=== PATIENT | female | born 1985 | race Caucasian/White ===

== ENCOUNTER 2025-03-07 17:34 | Inpatient (IN) ==
--- NOTE | 2025-03-07 17:51 | Emergency Department Note ---
Impression & Plan Back pain, Neck and shoulder pain, Abnormal EKG, Elevated troponin I level, Cervical spine arthritis ED Provider Note NAME: DEAN DELANEY AGE: 39 SEX: F : 1985 ARRIVES VIA: Walk-In INFORMANT: Patient, ED PROVIDER(S): Jean Jones DO CHIEF COMPLAINT: Numbness HPI: The patient is a 39-year-old female who presented to the emergency department for an evaluation. The patient states that she has been having intermittent episodes of numbness and pain in visual problems over the course the last year. She states that sometimes it is in her legs sometimes it is in her arms. She states that today she noticed numbness in the right arm. She was concerned because it was radiating up the arm and she was concerned that something else could be going on. The patient denies having any fever. She has had no recent traveling. She is not been seen by her family doctor for the symptoms. The patient was asking specifically about the possibility of MS. ROS: See above HPI for pertinent positives & negatives. A total of 10 systems reviewed and were otherwise negative. PAST MEDICAL HISTORY: See Below PAST SURGICAL HISTORY: See Below FAMILY HISTORY: See Below SOCIAL HISTORY: See Below HOME MEDICATIONS: See Below ALLERGIES: See Below VITALS: See Below PHYSICAL EXAMINATION: GENERAL: Patient is awake alert in no acute distress patient is resting comfortably and showing no signs of anxiety EYES: The conjunctivae are clear. The pupils are round and reactive. EARS, NOSE, MOUTH AND THROAT: The nose is without any evidence of any deformity. NECK: The neck is nontender and supple. RESPIRATORY: Normal respiratory effort is noted there is no evidence of wheezing rhonchi or rales CARDIOVASCULAR: Regular rate and rhythm noted there no murmurs rubs or gallops normal S1 normal S2. GASTROINTESTINAL: The abdomen is soft. Abdomen is nontender. MUSCULOSKELETAL/EXTREMITIES: There is no evidence of gross deformity full range of motion is noted in the hips and shoulders. SKIN: There is no obvious evidence of any rash. There are no petechiae, pallor or cyanosis noted. NEUROLOGIC: Patient is awake alert and oriented x3 strength is symmetric patellar reflexes are 2+ bilaterally MEDICAL DECISION MAKING: The patient is a 39-year-old female who presented to the emergency department for an evaluation of joint pain arm numbness back pain and neck pain. The patient has a history of diabetes. Because of her history and comorbidities further laboratory and radiographic studies were obtained. I was concerned this could represent some sort of anginal equivalent. The patient's EKG did show some changes compared to previous which could be related to a strain pattern. Troponin was slightly elevated. I discussed the patient's laboratory and radiographic studies with her. CT of the cervical spine did show some arthritis which could explain some of her symptoms as well as cervical radiculopathy. Given the patient's findings I do not feel she would be a good candidate for outpatient management. For this reason I discussed her condition with the on- call [facility] hospitalist. Triage Nursing notes reviewed. Prior medical records reviewed Vital Signs: reviewed and remarkable for elevated blood pressure. Differential diagnosis: Infection, dehydration, metabolic abnormality, hypo/hyperglycemia, electrolyte disturbance, anemia, hypoxia, cardiac sources, intracerebral event, toxicologic, neurologic, as well as other pathologies. ER treatment provided: See below Diagnostics interpreted by me: ECG: EKG was obtained in the emergency department. My interpretation is normal sinus rhythm at 72 bpm. There is no ectopy. Nonspecific ST abnormalities were noted in the inferior and low lateral leads. This was compared to a tracing from April 07, 2014. The ST abnormalities are new compared to the previous tracing. Cardiac Monitoring: An order was placed for continuous cardiac monitoring. The monitor shows a rate of 68 bpm with sinus rhythm. Laboratory studies: As stated above and show below. Imaging studies: See below. Radiographic imaging was reviewed by myself Consultation(s): I discussed this case with Dr. Mcconnell who is on-call for the [facility] group. Past Med/Surg History Problem List (Updated 03/07/25 @ 19:56 by Jean Jones DO) Cervical spine arthritis (Acute) Elevated troponin I level (Acute) Abnormal EKG (Acute) Neck and shoulder pain (Acute) Back pain (Acute) Hypothyroidism (Chronic) Hypokalemia (Chronic) Kidney stones (Chronic) Pancreatitis (Chronic) Depression (Chronic) Acute pancreatitis (Acute) Acute pancreatitis (Acute) Social History Smoking Status: Unknown if ever smoked Preferred Language: Maori Feels Safe at Home: Yes Allergies Allergies Allergy/AdvReac Type Severity Reaction Status Date / Time No Known Allergies Allergy Unverified 04/06/14 15:29 Home Meds Home Medications Medication Instructions Recorded Confirmed 5-HYDROXYTRYPTOPHAN (5-HTP) 2 cap PO DAILY ##0 04/06/14 Amlodipine Besylate 1 tab PO DAILY ##0 04/06/14 Clonazepam (Klonopin) 2 mg PO BID Anxiety/Agitation #0 04/06/14 tabs Levothyroxine Sodium (Synthroid) 1 tab PO DAILY ##0 04/06/14 Omeprazole (Prilosec) 40 mg PO DAILY #0 caps 04/06/14 POTASSIUM CHLORIDE (KLOR-CON) 40 meq PO DAILY #0 tabs 04/06/14 Simvastatin 1 tab PO DAILY ##0 04/06/14 Previous Rx's Medication Instructions Recorded Loratadine (Claritin) 10 mg PO DAILY 30 days #0 tabs 04/08/14 Nicotine 14 mg transdermal QAM 45 days ##0 04/08/14 Results & Data (ED) Vital Signs Vital Signs - 24 hr 03/07/25 17:40 03/07/25 18:22 Temperature 36.7 C Temperature Source Temporal Artery Scan Pulse Rate 73 68 Respiratory Rate 18 17 Respiratory Effort / Characteristics Non-Labored Spontaneous Respiratory Depth Normal Blood Pressure 147/97 H Blood Pressure Mean 113 Pulse Oximetry 97 94 Oxygen Delivery Method Room Air Room Air Sepsis Recent Fever Within 48 Hours No Sepsis New/Unexplained Change in Mental Status N/A Sepsis Action Taken by Nursing No Action Required Home Medications Current Medication List: was personally reviewed by me Laboratory Data Attestation: I reviewed the patient's lab results. 03/07/25 18:12 03/07/25 18:12 Lab Results 03/07/25 Range/Units 18:12 WBC 10.46 (4.8-10.8) K/ul RBC 4.63 (4.20-5.40) M/uL Hgb 14.1 (12.0-16.0) g/dl Hct 40.7 (37.0-47.0) % MCV 87.9 (80.0-100.0) fL MCH 30.5 (25.0-34.0) pg MCHC 34.6 (32.0-36.0) g/dL RDW Std Deviation 41.6 (36.4-46.3) fL RDW Coeff of Ginny 13.1 (11.5-14.5) % Plt Count 316 (130-400) K/uL MPV 9.2 L (9.4-12.4) fL Immature Gran % (Auto) 1.3 % Neut % (Auto) 52.0 % Lymph % (Auto) 36.2 % Storey % (Auto) 5.1 % Eos % (Auto) 4.6 % Baso % (Auto) 0.8 % Neut # (Auto) 5.44 (1.40-6.50) K/uL Lymph # (Auto) 3.79 H (1.20-3.40) K/uL Storey # (Auto) 0.53 (0.11-0.59) K/uL Eos # (Auto) 0.48 (0.00-0.50) K/uL Baso # (Auto) 0.08 (0.00-0.20) K/uL Immature Gran # (Auto) 0.14 (0.01-0.20) K/uL Sodium 134 L (136-145) mmol/L Potassium 3.9 (3.5-5.1) mmol/L Chloride 103 (98-107) mmol/L Carbon Dioxide 24 (21-32) mmol/L Anion Gap 7 (3-11) BUN 30 H (6-23) mg/dl Creatinine 1.10 (0.6-1.2) mg/dl Est Cr Clr Drug Dosing 71.3 ml/min eGFR 65.14 BUN/Creatinine Ratio 27.3 H (10-20) Glucose 101 H (70-99(Fasting)) mg/dl Calcium 9.7 (8.6-10.3) mg/dl Magnesium 1.8 (1.7-2.4) mg/dl Total Bilirubin 0.6 (0.2-1.0) mg/dl AST 38 (13-39) U/L ALT 41 (7-52) U/L Alkaline Phosphatase 34 (34-104) U/L Troponin I High Sens 17.1 H (0-14) pg/ml Total Protein 7.6 (6.0-8.3) gm/dl Albumin 4.4 (3.4-5.0) gm/dl Globulin 3.2 (2.5-4.0) gm/dl Albumin/Globulin Ratio 1.4 (0.9-2) TSH 2.342 (0.300-4.500) uIu/ml HCG, Qual Negative (Negative) Administered Medications Discontinued Medications Aspirin (Aspirin Chew 324 Mg) 324 mg PO NOW STA Stop: 03/07/25 19:01 Last Admin: 03/07/25 19: Dose: 324 mg Documented By: JANE Dexamethasone Sodium Phosphate (DexamethasonePf 10 Mg/Ml Vial) 10 mg IV NOW ONE Stop: 03/07/25 19:01 Last Admin: 03/07/25 19: Dose: 10 mg Documented By: JANE Imaging Data Attestation: I personally reviewed and interpreted this imaging study as follows: My Impression: CT of the brain was obtained in the emergency department. My interpretation is no intracranial hemorrhage or mass effect, final report below. 1 view chest x-ray was obtained in the emergency department. My interpretation is no free air or definite infiltrate, final report below. Radiologist's Impression: Cervical Spine CT 03/07/25 18:01 Clinical history: Numbness Technique: Axial computed tomography images were obtained of the cervical spine without intravenous contrast. Sagittal and coronal reconstructions were obtained Findings: No fracture is identified. No listhesis is seen. No focal osseous lesion is evident. The atlantoaxial articulation appears unremarkable. At C2-3, no disc herniation is identified. There is no spinal stenosis. The neural foramen are patent At C3-4, there is a mild disc bulge. There is no spinal stenosis. The neural foramen are patent At C4-5, there is a mild disc bulge. There is no spinal stenosis. The neural foramen are patent At C5-6, there is spinal stenosis due to a disc bulge and a right paracentral disc protrusion. The neural foramen are patent At C6-7, there is spinal stenosis due to a disc bulge and a central disc protrusion. There is bilateral neural foramen narrowing that may affect the exiting C7 nerve roots At C7-T1, there is a mild disc bulge without spinal stenosis. There is mild left neural foramen narrowing The lung apices appear clear. The visualized soft tissues of the neck appear unremarkable. No foreign body is seen Impression: 1. No definite cervical spine fracture 2. Spinal stenosis at C5-6 and C6-7 3. Bilateral neural foramen narrowing at C6-7 that may affect the exiting C7 nerve roots ACT 112: Positive. There are findings on this exam that require communication between the performing entity and the patient following Patient Test Result Information Act ([place] ACT 112) guidelines. Electronically signed by Landry Wayne 03-07-2025 6:53 PM Chest X-Ray 03/07/25 18:01 Clinical History: Weakness Technique: A frontal view of the chest was obtained Findings: There are no confluent pulmonary infiltrates. The heart size is within normal limits. No pleural effusion or pneumothorax is seen. There is no definite pulmonary nodule. No fracture is noted. No foreign body is seen Impression: No active disease Electronically signed by Landry Wayne 03-07-2025 7:[address] 03/07/25 18:01 Clinical History: Numbness Technique: Axial computed tomography images were obtained of the brain from the vertex to the skull base without intravenous contrast. Findings: There is no sign of intracranial hemorrhage. There is normal ovalle-white matter differentiation with no sign of acute or old infarction. No midline shift or other form of herniation is identified. There is no hydrocephalus. No obvious mass lesion is seen on this noncontrast examination. The visualized portions of the orbits and paranasal sinuses appear unremarkable. The mastoid air cells appear clear Impression: Unremarkable noncontrast CT of the brain Electronically signed by Landry Wayne 03-07-2025 6:50 PM Discharge Plan Visit Data Chief Complaint: Leg Injury/Pain Stated Complaint: NUMBNESS PAIN IN LEGS IN RT ARM AND HAND ED Provider: Jean Jones Discharge Problem: Back pain, Neck and shoulder pain, Abnormal EKG, Elevated troponin I level, Cervical spine arthritis Patient Disposition: Being Evaluated by Hospitalist Condition: Fair Forms Stand Alone Forms: [facility] Prescriptions Prescriptions: No Action 5-HYDROXYTRYPTOPHAN (5-HTP) 100 MG capsule 2 cap PO DAILY Qty: 0 Amlodipine Besylate 10 MG tablet 1 tab PO DAILY Qty: 0 Levothyroxine Sodium (Synthroid) 25 MCG tablet 1 tab PO DAILY Qty: 0 Omeprazole (Prilosec) 40 MG CONTR REL CAP 40 mg PO DAILY Qty: 0 POTASSIUM CHLORIDE (KLOR-CON) 20 MEQ [id number] 40 meq PO DAILY Qty: 0 Simvastatin 40 MG tablet 1 tab PO DAILY Qty: 0 Clonazepam (Klonopin) 2 MG tablet 2 mg PO BID Qty: 0 Loratadine (Claritin) 10 MG tablet 10 mg PO DAILY 30 Days Qty: 0 0RF Nicotine 1 PATCH TRANSDERM SYS 14 mg Transdermal QAM 45 Days Qty: 0 0RF Referrals Referrals: Misael Galaviz, [Outside Practitioners] -
[2025-03-07 18:25] LABS: Hematocrit (blood only) 40.7 % (37.0-47.0); Hemoglobin 14.1 g/dl (12.0-16.0); Immature Granulocytes # (auto) 0.14 K/uL (0.01-0.20); Immature Granulocytes % (auto) 1.3 %; Mean Corpuscular Hemoglobin 30.5 pg (25.0-34.0); Mean Corpuscular Volume 87.9 fL (80.0-100.0); Platelet Count 316 K/uL (130-400); RDW Standard Deviation 41.6 fL (36.4-46.3); Red Blood Count 4.63 M/uL (4.20-5.40); White Blood Count 10.46 K/ul (4.8-10.8)
[2025-03-07 18:41] LABS: Pregnancy Test, Serum Negative (Negative)
[2025-03-07 18:43] LABS: Alanine Aminotransferase 41.0 U/L (7-52); Albumin Globulin Ratio 1.4 (0.9-2); Alkaline Phosphatase 34.0 U/L (34-104); Anion Gap 7.0 (3-11); Bilirubin,Total 0.6 mg/dl (0.2-1.0); Blood Urea Nitrogen 30.0 mg/dl (6-23); Calcium 9.7 mg/dl (8.6-10.3); Carbon Dioxide 24.0 mmol/L (21-32); Chloride 103.0 mmol/L (98-107); Creatinine Clr Calc Pharmacy 71.3 ml/min; Globulin 3.2 gm/dl (2.5-4.0); Glucose 101.0 mg/dl (70-99(Fasting)); Magnesium 1.8 mg/dl (1.7-2.4); Potassium 3.9 mmol/L (3.5-5.1); Sodium 134.0 mmol/L (136-145); Total Protein 7.6 gm/dl (6.0-8.3)
--- NOTE | 2025-03-07 18:51 | CT Scan Report ---
Clinical History: Numbness Technique: Axial computed tomography images were obtained of the brain from the vertex to the skull base without intravenous contrast. Findings: There is no sign of intracranial hemorrhage. There is normal ovalle-white matter differentiation with no sign of acute or old infarction. No midline shift or other form of herniation is identified. There is no hydrocephalus. No obvious mass lesion is seen on this noncontrast examination. The visualized portions of the orbits and paranasal sinuses appear unremarkable. The mastoid air cells appear clear Impression: Unremarkable noncontrast CT of the brain Electronically signed by Landry Wayne 03-07-2025 6:50 PM
--- NOTE | 2025-03-07 18:53 | CT Scan Report ---
Clinical history: Numbness Technique: Axial computed tomography images were obtained of the cervical spine without intravenous contrast. Sagittal and coronal reconstructions were obtained Findings: No fracture is identified. No listhesis is seen. No focal osseous lesion is evident. The atlantoaxial articulation appears unremarkable. At C2-3, no disc herniation is identified. There is no spinal stenosis. The neural foramen are patent At C3-4, there is a mild disc bulge. There is no spinal stenosis. The neural foramen are patent At C4-5, there is a mild disc bulge. There is no spinal stenosis. The neural foramen are patent At C5-6, there is spinal stenosis due to a disc bulge and a right paracentral disc protrusion. The neural foramen are patent At C6-7, there is spinal stenosis due to a disc bulge and a central disc protrusion. There is bilateral neural foramen narrowing that may affect the exiting C7 nerve roots At C7-T1, there is a mild disc bulge without spinal stenosis. There is mild left neural foramen narrowing The lung apices appear clear. The visualized soft tissues of the neck appear unremarkable. No foreign body is seen Impression: 1. No definite cervical spine fracture 2. Spinal stenosis at C5-6 and C6-7 3. Bilateral neural foramen narrowing at C6-7 that may affect the exiting C7 nerve roots ACT 112: Positive. There are findings on this exam that require communication between the performing entity and the patient following Patient Test Result Information Act ([place] ACT 112) guidelines. Electronically signed by Landry Wayne 03-07-2025 6:53 PM
[2025-03-07 18:58] LABS: Thyroid Stimulating Hormone 2.342 uIu/ml (0.300-4.500)
[2025-03-07] MEDS: dexAMETHasone**PF** 10 MG/ML VIAL IV ONE (19:25)
[2025-03-07] MEDS: ASPIRIN CHEW 324 MG PO STA (19:25)
--- NOTE | 2025-03-07 19:32 | XRay Report ---
Clinical History: Weakness Technique: A frontal view of the chest was obtained Findings: There are no confluent pulmonary infiltrates. The heart size is within normal limits. No pleural effusion or pneumothorax is seen. There is no definite pulmonary nodule. No fracture is noted. No foreign body is seen Impression: No active disease Electronically signed by Landry Wayne 03-07-2025 7:32 PM
[2025-03-07] MEDS: MoRPHine SULFATE 4 MG/ML 1 ML CARP\\VIAL IV STA (20:46)
[2025-03-07] MEDS: ONDANSETRON INJ 2 MG/ML 2 ML VIAL IV STA (20:46)
--- NOTE | 2025-03-07 20:58 | History & Physical Report ---
Date of Service March 07, 2025 Assessment & Plan (1) Numbness and tingling: (2) Radiculopathy: (3) Elevated troponin: (4) Type 2 diabetes mellitus: Plan 39-year-old female PMHx depression, hypothyroidism, and cervical spine arthritis presenting for numbness and tingling in her bilateral arms. Per ED evaluation reveals slightly decreased sodium, slightly elevated troponin, and EKG with some changes. Imaging reveals no findings on CXR or head CT, however cervical spine CT does reveal narrowing at C6-7 with spinal stenosis. She will be admitted for evaluation of elevated troponin as well as persistent upper extremity symptoms. #Numbness and tingling/Cervical radiculopathy Presenting with numbness/tingling of BUE, ongoing for years but worsening the day of arrival; Known cervical arthritis per chart. On topiramate. Received pain management and steroids in ED. Pt has a wide variety of symptoms mentioned. Given her history of cervical arthritis, numbness/tingling, sensation abnormalities (itching) and overall picture, I do think medical charge entry specialist rheumatology labs would be reasonable at this time. She was seen by rheum in the past but was not satisfied with the evaluation. Also, with symptomatic cervical findings on imaging, ortho will be consulted for any assistance in case. - CBC without leukocytosis, stable H/H; CMP Na 134, BUN 30, ratio 27.3, glucose 101; TSH 2.342 - CBC am - LFTs WNL - Pending ESR, CRP, IWONA, rheum factor, vitamin B12, folate, A1c - CXR WNL - Head CT WNL - C spine CT no fracture, spinal stenosis of C5-6 and C6-7, bilateral neuroforaminal narrowing at C6-7 that may be affecting C7 nerve root - Heat prn back, lidocaine patch prn - Acetaminophen prn fever/pain, morphine prn severe pain - Ortho consulted - appreciate input + recs -- further imaging as determined by ortho #Elevated troponin Some chest tightness earlier in the day, also in setting of asthma. Will continue to monitor. Low suspicion for ACS at time of admission. - Troponin 17.1, pending repeat - EKG NSR with nonspecific T wave abnormality but no clear ischemic changes - Likely 2/2 demand - EKG prn CP #T2DM H/o DMT2; At home regimen of Jardiance, metformin, insulin glargine 38U, insulin lispro. - A1c pending - Hold hold regimen - May use Dexcom, 1 check daily - SSI with target BSG range 110-150mg/dL, CF 25, carb ratio 10 - Lantus 15U BID - Adjust regimen as needed #Asthma- CXR stable; No O2; Dupixent, Trelegy - continue #HTN- Amlodipine - continue #Dyslipidemia- Fenofibrate, fish oil, rosuvastatin - continue #Psych- BuSpar, escitalopram, hydroxyzine prn - continue #Hypothyroidism- Levothyroxine - continue #GERD- Pantoprazole - continue #MERLIN- CPAP HS - continue Dispo: Admit, med/tele VTE Prophylaxis: SCDs This document was dictated utilizing [employer]. Please excuse any grammatical errors that may be secondary to use of this software. Admission and Anticipated Discharge Date Admission Date: 03/07/2025 History of Present Illness Chief Complaint: Numbness/tingling Primary Care Provider: YVETTE Velázquez 39-year-old female PMHx HTN, T2DM, anxiety/depression, asthma, GERD, hypothyroidism, and cervical spine arthritis presenting for numbness and tingling in her bilateral arms. Patient has an extensive past medical history. In terms of her concerns on the day of arrival, she states that she was at [facility] earlier in the day and she started to have R arm numbness that was localized from the elbow to the hand, and she felt that her ep technologist had decreased. This was causing her some discomfort and pain. She has not had that in the past, likely because it had occurred on one side she was concerned. She additionally states that she might have had some chest pressure and difficulty breathing at some point, probably 2 hours prior to being seen but possible. She states when she got to her car her forehead was cold but she felt sweaty, also mentioning that it was a very hot point in the day that medicine because of the outside temperature. Denies palpitations, abdominal pain, N/V/D/C, weakness, lightheadedness, syncope, or falls. No recent trauma to her back, however she did attempt a different lifting technique a few days ago which she felt may have pulled her back slightly, but again no falls or trauma. Patient starts by mentioning she has a history of chronic pancreatitis which started in her early 20s. It was thought to be secondary to hypertriglyceridemia, and her most recent episode of pancreatitis was approximately 4 years ago. She does take 4 fish capsules nightly which has seemed to prevent this from as she is on medications. She denies abdominal pain, N/V/D/C. Since 26 years old, she has had bilateral leg pain and numbness. She states that this was thought to be secondary to Tricor which was discontinued at the time, however she continued to have symptoms. The symptoms go down her left leg and into her buttock/left side of the spine mostly. This has been ongoing for 3 to 4 months with associated N/T. She is taken Tylenol arthritis and attempt to alleviate this which has for the most part until approximately 2 weeks ago whenever the symptoms moved to her RLE. She states that whenever she touches her back she cannot always feel it. She has difficulties having bowel movements as it causes her back and posterior leg pain when straining to have a BM. She states that she cannot empty her bladder completely as she was told a few years ago during a Pap smear that her bladder was descending and she may never be able to feel herself empty completely. Patient does have a history of carpal tunnel since 2016 when she was with her son and her bilateral upper extremities. For the past 3 years she says her whole body has just always been numb. She occasionally will have worsening pain in her leg when her neck bothers her, and she admits to sleeping on her stomach often but she is not sure if sleep position, at times, irritates this. Patient also admits to having "fluid around my heart" when her body is under stress. Patient was diagnosed with diabetes in May 2024 and started on insulin. Also started on vitamin D and magnesium for low levels. Reports chronic yeast infections. States that when her numbness resolves at times, the sensation changes to it itching "on fire" sensation where she will scratch the areas are previously numb to the point that she sometimes causes scabbing or welts to occur. At present, she admits to occasional chest tightness, but no pain/palpitations. No SOB. Patient was reportedly seen by rheumatology 3 years back but felt as though she was "brushed off" because she was 30 minutes late to her appointment after her phone and she was unable to find the location of the building. States the only thing that was positive at that time was possible gluten intolerance, however after further testing this came back as negative. She has been dealing with an ongoing array of symptoms for many years, stating that she often will minimize her symptoms because she does not want to symptomatic. 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 ED evaluation reveals CBC without leukocytosis and with stable H&H; CMP sodium 134, BUN 30, ratio 327.3, glucose 101; troponin 17.1, pending repeat; TSH 2.342; CXR no active disease; head CT unremarkable; cervical spine CT no definite fracture, spinal stenosis of C5-6 and C6-7, bilateral neural foramen narrowing at C6-7 that may affect the existing C7 nerve roots; EKG NSR with nonspecific T wave abnormality at 72 bpm.; Provided with Zofran 4 mg IV, morphine 4 mg IV, dexamethasone 10 mg IV, and aspirin 324 mg p.o. in ED. Please see Dr. Mcconnell's attestation for adjustments/additions to treatment plan. Allergies Allergy/AdvReac Type Severity Reaction Status Date / Time ciprofloxacin [From Cipro] Allergy Unknown Verified 03/07/25 22:01 prednisone AdvReac Mild Verified 03/07/25 22:01 NSAIDS (Non-Steroidal AdvReac Unknown Verified 03/07/25 22:01 Anti-Inflamma Home Medications Medication Instructions Recorded Confirmed Type buspirone 15 mg tablet 15 mg PO TID 03/07/25 03/07/25 History dupilumab 300 mg/2 mL subcutaneous 300 mg subcut 2XWK 03/07/25 03/07/25 History syringe (Dupixent) empagliflozin 10 mg tablet 10 mg DAILY 03/07/25 03/07/25 History (Jardiance) ergocalciferol (vitamin D2) 1,250 1,250 mcg PO WK 03/07/25 03/07/25 History mcg (50,000 unit) capsule (Vitamin D2) escitalopram oxalate 20 mg tablet 20 mg PO DAILY 03/07/25 03/07/25 History (Lexapro) fenofibrate micronized 134 mg 134 mg PO DAILY 03/07/25 03/07/25 History capsule fluticasone fur. 100 mcg-umeclid 1 inh inhalation DAILY 03/07/25 03/07/25 History 62.5 mcg-vilant 25 mcg inhalat.powder (Trelegy Ellipta) hydroxyzine HCl 10 mg tablet 10 mg PO TID PRN Anxiety/Agitation 03/07/25 03/07/25 History insulin glargine 100 unit/mL (3 38 unit subcut HS 03/07/25 03/07/25 History mL) subcutaneous pen (Lantus Solostar U-100 Insulin) insulin lispro 100 unit/mL 5 unit subcut TID 03/07/25 03/07/25 History subcutaneous pen levothyroxine 112 mcg tablet 112 mcg PO QAM 03/07/25 03/07/25 History magnesium oxide 400 mg (241.3 mg 400 mg PO DAILY 03/07/25 03/07/25 History magnesium) tablet metformin 1,000 mg tablet 1,000 mg PO BID 03/07/25 03/07/25 History omega-3 acid ethyl esters 1 gram 1 g PO QID 03/07/25 03/07/25 History capsule pantoprazole 20 mg tablet,delayed 20 mg PO DAILY 03/07/25 03/07/25 History release rosuvastatin 10 mg tablet 10 mg PO DAILY 03/07/25 03/07/25 History topiramate 25 mg tablet 25 mg PO BID 03/07/25 03/07/25 History Past Med/Surg History Problem List Type 2 diabetes mellitus Elevated troponin Radiculopathy Numbness and tingling Cervical spine arthritis (Acute) Elevated troponin I level (Acute) Abnormal EKG (Acute) Neck and shoulder pain (Acute) Back pain (Acute) Hypothyroidism (Chronic) Hypokalemia (Chronic) Kidney stones (Chronic) Pancreatitis (Chronic) Depression (Chronic) Acute pancreatitis (Acute) Acute pancreatitis (Acute) Social History Smoking Status: Former smoker Tobacco Type: Cigarettes Second Hand Exposure: No; Do You Dip or Chew Tobacco: No; Hx Alcohol Use: No Hx Substance Use: No Preferred Language: Spanish Communication Ability: Effective Ob Scrub Tech Required: No Beliefs That Will Affect Care: None Current Living Situation: Family Other Information That Helps Us Care for You: No Feels Safe at Home: Yes Safety Concerns: Feels Safe At This Time Assistive Devices: CPAP Review of Systems Review of Systems: All systems reviewed & are unremarkable except as noted in Subjective Physical Exam Physical Exam: General: No acute distress Skin: Warm and dry Head: Normocephalic, atraumatic Eyes: PERRL, conjunctivae clear, sclera non-icteric ENT: External ear and ear canal without swelling; nose atraumatic; good dentition, tongue normal appearance, pharynx normal Neck: Supple, no LAD Cardio: RRR, no M/G/R, S1 and S2 normal Resp: No respiratory distress, Lungs CTA in all lobes bilaterally, no wheezes, rales, or rhonchi Abdomen: Soft, symmetric, nontender; No masses or hepatosplenomegaly; Bowel sounds normoactive MSK: No deformities; pulses palpable and equal; no edema. Neuro: II- PERRL, no VF deficits III, IV, - EOMs intact, no deviation V- Normal sensation in all locations VII- No asymmetry, no nasolabial fold flattening VIII- Normal hearing to speech IX, X- Normal palatal elevation, no ulnar deviation XI- 5/5 head turn + shoulder shrug bilaterally XII- Midline tongue protrusion Motor: 5/5 strength throughout BUE/BLE Reflexes: WNL throughout, no clonus Sensory: No hemineglect; Decreased sensation to RUE outer forearm compared to L, normal sensation BLE/face/shoulders; "numbness" to back around T7-T8 (no skin changes) Coordination: Normal [id number], no tremor Gait: Unable to asses; no complaints Psych: Appropriate mood and affect, slightly anxious at times; good judgement and insight. Results & Data Results & Data Vital Signs (Past 12 Hours) Vital Signs Temp Pulse Resp BP Pulse Ox O2 Del Method 03/07/25 18:22 68 17 94 Room Air 03/07/25 17:40 36.7 C 73 18 147/97 H 97 Room Air Laboratory Results 03/07/25 18:12 WBC 10.46 RBC 4.63 Hgb 14.1 Hct 40.7 MCV 87.9 MCH 30.5 MCHC 34.6 RDW Std Deviation 41.6 RDW Coeff of Ginny 13.1 Plt Count 316 MPV 9.2 L Immature Gran % (Auto) 1.3 Neut % (Auto) 52.0 Lymph % (Auto) 36.2 Woods % (Auto) 5.1 Eos % (Auto) 4.6 Baso % (Auto) 0.8 Neut # (Auto) 5.44 Lymph # (Auto) 3.79 H Woods # (Auto) 0.53 Eos # (Auto) 0.48 Baso # (Auto) 0.08 Immature Gran # (Auto) 0.14 Sodium 134 L Potassium 3.9 Chloride 103 Carbon Dioxide 24 Anion Gap 7 BUN 30 H Creatinine 1.10 Est Cr Clr Drug Dosing 71.3 eGFR 65.14 BUN/Creatinine Ratio 27.3 H Glucose 101 H Calcium 9.7 Magnesium 1.8 Total Bilirubin 0.6 AST 38 ALT 41 Alkaline Phosphatase 34 Troponin I High Sens 17.1 H Total Protein 7.6 Albumin 4.4 Globulin 3.2 Albumin/Globulin Ratio 1.4 TSH 2.342 HCG, Qual Negative Diagnostic Findings Cervical Spine CT 03/07/25 18:01 Clinical history: Numbness Technique: Axial computed tomography images were obtained of the cervical spine without intravenous contrast. Sagittal and coronal reconstructions were obtained Findings: No fracture is identified. No listhesis is seen. No focal osseous lesion is evident. The atlantoaxial articulation appears unremarkable. At C2-3, no disc herniation is identified. There is no spinal stenosis. The neural foramen are patent At C3-4, there is a mild disc bulge. There is no spinal stenosis. The neural foramen are patent At C4-5, there is a mild disc bulge. There is no spinal stenosis. The neural foramen are patent At C5-6, there is spinal stenosis due to a disc bulge and a right paracentral disc protrusion. The neural foramen are patent At C6-7, there is spinal stenosis due to a disc bulge and a central disc protrusion. There is bilateral neural foramen narrowing that may affect the exiting C7 nerve roots At C7-T1, there is a mild disc bulge without spinal stenosis. There is mild left neural foramen narrowing The lung apices appear clear. The visualized soft tissues of the neck appear unremarkable. No foreign body is seen Impression: 1. No definite cervical spine fracture 2. Spinal stenosis at C5-6 and C6-7 3. Bilateral neural foramen narrowing at C6-7 that may affect the exiting C7 nerve roots ACT 112: Positive. There are findings on this exam that require communication between the performing entity and the patient following Patient Test Result Information Act ([place] ACT 112) guidelines. Electronically signed by Landry Wayne 03-07-2025 6:53 PM Chest X-Ray 03/07/25 18:01 Clinical History: Weakness Technique: A frontal view of the chest was obtained Findings: There are no confluent pulmonary infiltrates. The heart size is within normal limits. No pleural effusion or pneumothorax is seen. There is no definite pulmonary nodule. No fracture is noted. No foreign body is seen Impression: No active disease Electronically signed by Landry Wayne 03-07-2025 7:[address] 03/07/25 18:01 Clinical History: Numbness Technique: Axial computed tomography images were obtained of the brain from the vertex to the skull base without intravenous contrast. Findings: There is no sign of intracranial hemorrhage. There is normal ovalle-white matter differentiation with no sign of acute or old infarction. No midline shift or other form of herniation is identified. There is no hydrocephalus. No obvious mass lesion is seen on this noncontrast examination. The visualized portions of the orbits and paranasal sinuses appear unremarkable. The mastoid air cells appear clear Impression: Unremarkable noncontrast CT of the brain Electronically signed by Landry Wayne 03-07-2025 6:50 PM Medications Administered ASA 324 mg po Dexamethasone 10 mg IV Morphine 4 mg IV Zofran 4 mg IV ECG Additional Comments: NSR, nonspecific T wave abnormality 72 bpm, DE 162, QRS 84, QT/QTc 404/442, PRT 44/82/-40 Code Status & VTE Plan Code Status Full Supervising Physician Co-Signing Physician Notes Patient seen and examined, chart reviewed, case discussed with LINDSAY Silva and I agree with the assessment and plan as above. Patient is a 39yo female with DM, c-spine arthritis p/w several complaints. Some cheste tightness earlier in the day. Bilateral UE numbness and tingling Troponin=17.1 Patient resting comfortably in bed No rash +S1/S2, regular Lungs CTA Abd soft, NT/ND Ext no edema No neurologic deficits Labs and images reviewed Suspect cervical spine radiculopathy as cause of her UE pain -pain control, heat -Ortho consult appreciated - will defer further imaging Migratory tingling - patient is concerned about MS -Check IWONA, ESR, CRP, RF, B12 and Folate -Repeat A1C Remainder as above PG Care Time/CCT Total # of Minutes Spent Total Time Spent with Patient: Total time spent is greater than 50% in coordination of care (as documented) at patient's floor/unit and/or counseling patient: Coding Level of Care Code 73640 INT INP/OBS CARE 375MIN Diagnoses Numbness and tingling R20.0; R20.2 Radiculopathy M54.10 Elevated troponin R79.89 Type 2 diabetes mellitus E11.9
[2025-03-07] MEDS ORDERED: MoRPHine SULFATE 2 MG/ML CARP IV PRN (21:31)
[2025-03-07] MEDS ORDERED: diphenhydrAMINE 50 MG/ML VIAL IV PRN (21:31)
[2025-03-07] MEDS ORDERED: GLUCOSE 40% GEL 15 GM TUBE PO PRN (21:56)
[2025-03-07] MEDS ORDERED: DEXTROSE 50% 50 ML SYRINGE IV PRN (21:56)
[2025-03-07] MEDS ORDERED: CARBOHYDRATES FOR HYPOGLYCEMIA PO PRN (21:56)
[2025-03-07] MEDS ORDERED: GLUCAGON FOR INJ 1 MG VIAL SQ PRN (21:56)
[2025-03-07] MEDS ORDERED: GLUCOSE 10 TAB/TUBE PO PRN (21:56)
[2025-03-07] MEDS: LIDOCAINE 5% 1 PATCH TD STA (22:17)
[2025-03-07] MEDS: LANTUS PER UNIT CHARGE SQ STA (22:31)
[2025-03-07] MEDS: INSULIN ASPART PER UNIT CHARGE SC STA (22:32)
[2025-03-07] MEDS ORDERED: POLYETHYLENE (MIRALAX) 17 GM PACK PO PRN (22:56)
[2025-03-07 23:10] LABS: Appearance Urine Clear (Clear); Glucose Urine UA 3+ (Negative)
[2025-03-08] MEDS: MELATONIN 3 MG TAB PO PRN (00:52)
[2025-03-08] MEDS: LEVOTHYROXINE SODIUM 112 MCG TABLET PO SCH (05:17)
[2025-03-08 07:21] LABS: Hematocrit (blood only) 42.0 % (37.0-47.0); Hemoglobin 14.4 g/dl (12.0-16.0); Mean Corpuscular Hemoglobin 30.3 pg (25.0-34.0); Mean Corpuscular Volume 88.2 fL (80.0-100.0); Platelet Count 360 K/uL (130-400); RDW Standard Deviation 41.7 fL (36.4-46.3); Red Blood Count 4.76 M/uL (4.20-5.40); White Blood Count 12.92 K/ul (4.8-10.8)
[2025-03-08 07:24] LABS: Folate (Folic Acid),Ser orPlas > 22.30 ng/ml (>5.38)
[2025-03-08 07:25] LABS: Vitamin B12 271 pg/ml (180-914)
[2025-03-08 08:25] LABS: Hemoglobin A1C 6.2 % (4.5-5.6)
[2025-03-08] MEDS ORDERED: NON-FORMULARY MEDICATION (Fluticasone-Umeclidin-Vilanter [Trelegy Ellipta] 100-62.5-25 mcg INH SCH (09:00)
[2025-03-08] MEDS: busPIRone 15 MG TAB PO SCH (09:14)
[2025-03-08] MEDS: FENOFIBRATE NANOCRYSTALLIZED 145 MG TABLET PO SCH (09:15)
[2025-03-08] MEDS: OMEGA-3 (PURIFIED FISH OIL) 1 GM CAP PO SCH (09:15)
[2025-03-08] MEDS: ESCITALOPRAM OXALATE 20 MG TAB PO SCH (09:15)
[2025-03-08] MEDS: ROSUVASTATIN CALCIUM 10 MG TAB PO SCH (09:16)
[2025-03-08] MEDS: MAGNESIUM OXIDE 400 MG TAB PO SCH (09:16)
[2025-03-08] MEDS: FLUTICASONE FUROATE 100MCG 14 PUFFS/INHALER INH SCH (09:16)
[2025-03-08] MEDS: TOPIRAMATE 25 MG TAB PO SCH (09:17)
[2025-03-08] MEDS: UMECLIDINIUM/VILANTEROL 62.5/25MCG 7 PUFFS/INHALER INH SCH (09:17)
[2025-03-08] MEDS: LANTUS PER UNIT CHARGE SQ SCH (09:25)
[2025-03-08] MEDS: INSULIN ASPART PER UNIT CHARGE SC SCH ×2 (09:26→13:12)
[2025-03-08] MEDS ORDERED: DEXTROSE 50% 50 ML SYRINGE IV PRN (09:29)
[2025-03-08] MEDS ORDERED: CARBOHYDRATES FOR HYPOGLYCEMIA PO PRN (09:29)
[2025-03-08] MEDS ORDERED: GLUCAGON FOR INJ 1 MG VIAL SQ PRN (09:29)
[2025-03-08] MEDS ORDERED: GLUCOSE 40% GEL 15 GM TUBE PO PRN (09:29)
[2025-03-08] MEDS ORDERED: GLUCOSE 10 TAB/TUBE PO PRN (09:29)
[2025-03-08] MEDS: Continuous Glucose Monitor SCH (09:50)
--- NOTE | 2025-03-08 09:51 | Orthopedic Consultation ---
Date of Service March 08, 2025 Assessment & Plan (1) Numbness and tingling: (2) Cervical spine arthritis: (3) Neck and shoulder pain: (4) Back pain: Plan I discussed the examination with the patient today, she does not have any fixed neurologic deficits as far as strength, does have altered sensation into the right upper extremity. She does report some chronic carpal tunnel syndrome, as well as chronic low back and radicular pain into the left lower extremity. She reports paresthesias in all 4 extremities, reports she is unable to take NSAIDs due to allergies. May benefit from a trial of steroid however will defer to hospital medicine as she is also being worked up for elevated troponins, which appear mildly elevated with no significant increase overnight. Will order MRIs of the cervical thoracic and lumbar spine to evaluate for any sign of neurologic compression. I will review the studies once they are completed to see if there are any signs of neurologic compression that may benefit from surgical decompression but hopefully will be able to proceed with conservative care. History of Present Illness Reason for Consultation: Diffuse paresthesias Attending Physician: Binu Ashraf MD Patient was admitted through the emergency department yesterday by hospital medicine. She reports longstanding numbness and tingling into the upper extremities, states that she knows she has bilateral carpal tunnel syndrome and is used to the numbness and tingling in her hands. She describes diffuse back pain and neck pain that has been ongoing for quite some time. She describes low back pain radiating into the left lower extremity down the back of the leg which she had thought was sciatic nerve pain. That has been relatively stable for months. She also reports yesterday she had numbness rating into the right upper extremity that was more significant than usual, she does not have any fixed strength deficits however she states she feels her legs are weak when she attempts to walk. She also reports urinary urgency over the last several months, she has seen another physician and was told that her bladder is distending which could be contributing to some of the urinary issues. She does also report occasional decreased sensation with urinating however. No discrete pattern of pain or numbness, this seems to be diffuse throughout the upper and lower extremities to varying degrees and has been going on for quite some time with changes in intensity. Allergies Allergy/AdvReac Type Severity Reaction Status Date / Time ciprofloxacin [From Cipro] Allergy Unknown Verified 03/07/25 22:01 prednisone AdvReac Mild Verified 03/07/25 22:01 NSAIDS (Non-Steroidal AdvReac Unknown Verified 03/07/25 22:01 Anti-Inflamma Home Medications Medication Instructions Recorded Confirmed Type buspirone 15 mg tablet 15 mg PO TID 03/07/25 03/07/25 History dupilumab 300 mg/2 mL subcutaneous 300 mg subcut 2XWK 03/07/25 03/07/25 History syringe (Dupixent) empagliflozin 10 mg tablet 10 mg DAILY 03/07/25 03/07/25 History (Jardiance) ergocalciferol (vitamin D2) 1,250 1,250 mcg PO WK 03/07/25 03/07/25 History mcg (50,000 unit) capsule (Vitamin D2) escitalopram oxalate 20 mg tablet 20 mg PO DAILY 03/07/25 03/07/25 History (Lexapro) fenofibrate micronized 134 mg 134 mg PO DAILY 03/07/25 03/07/25 History capsule fluticasone fur. 100 mcg-umeclid 1 inh inhalation DAILY 03/07/25 03/07/25 History 62.5 mcg-vilant 25 mcg inhalat.powder (Trelegy Ellipta) hydroxyzine HCl 10 mg tablet 10 mg PO TID PRN Anxiety/Agitation 03/07/25 0 03/07/25 History insulin glargine 100 unit/mL (3 38 unit subcut HS 03/07/25 03/07/25 History mL) subcutaneous pen (Lantus Solostar U-100 Insulin) insulin lispro 100 unit/mL 5 unit subcut TID 03/07/25 03/07/25 History subcutaneous pen levothyroxine 112 mcg tablet 112 mcg PO QAM 03/07/25 03/07/25 History magnesium oxide 400 mg (241.3 mg 400 mg PO DAILY 03/07/25 03/07/25 History magnesium) tablet metformin 1,000 mg tablet 1,000 mg PO BID 03/07/25 03/07/25 History omega-3 acid ethyl esters 1 gram 1 g PO QID 03/07/25 03/07/25 History capsule pantoprazole 20 mg tablet,delayed 20 mg PO DAILY 03/07/25 03/07/25 History release rosuvastatin 10 mg tablet 10 mg PO DAILY 03/07/25 03/07/25 History topiramate 25 mg tablet 25 mg PO BID 03/07/25 03/07/25 History Past Med/Surg History Problem List (Updated 03/08/25 @ 10:10 by Adryan Ferrari MD) Type 2 diabetes mellitus Elevated troponin Radiculopathy Numbness and tingling Cervical spine arthritis (Acute) Elevated troponin I level (Acute) Abnormal EKG (Acute) Neck and shoulder pain (Acute) Back pain (Acute) Hypothyroidism (Chronic) Hypokalemia (Chronic) Kidney stones (Chronic) Pancreatitis (Chronic) Depression (Chronic) Acute pancreatitis (Acute) Acute pancreatitis (Acute) Social History Smoking Status: Former smoker Tobacco Type: Cigarettes Second Hand Exposure: No; Do You Dip or Chew Tobacco: No; Hx Alcohol Use: No Hx Substance Use: No Preferred Language: Slovak Communication Ability: Effective Food Concession Manager Required: No Beliefs That Will Affect Care: None Current Living Situation: Family Other Information That Helps Us Care for You: No Feels Safe at Home: Yes Safety Concerns: Feels Safe At This Time Assistive Devices: CPAP Review of Systems All systems reviewed & are unremarkable except as noted in HPI & below. Physical Exam Constitutional: Well developed, appears stated age Psych: patient is coherent and answers questions appropriately, normal affect Eye: Normal gaze, no redness to sclera, pupils round and equal Pulm: Normal respiratory effort, no wheezing Cardiovascular: no significant peripheral edema, 2+ radial pulses Skin shows no rashes, lesions 5/5 muscle strength with testing of deltoids, wrist extensors, triceps, finger flexion, and hand intrinsics She reports decreased sensation in right upper extremity across multiple dermatomal patterns, sensation intact to light touch C5-T1 on the left Negative Anderson sign bilaterally, positive Lhermitte sign Motor strength is 5/5 in bilateral hip flexors, quadriceps, tibialis anterior, extensor hallucis longus, and gastroc/soleus complex Sensation intact to light touch in the L2-S1 dermatomes bilaterally 2+ reflexes at the achilles and patella tendons bilaterally No ankle clonus, downgoing Babinski's sign Results & Data Results & Data Laboratory Results . Diagnostic Findings CT scan of the cervical spine was available for review today and interpreted personally. Draining of the usual cervical lordosis, she has multiple levels of disc degeneration most significant at C5-6 and C6-7 where there is evidence of disc osteophyte complex as well as facet arthropathy and bone spurs which could contribute to foraminal stenosis. PG Care Time/CCT Total # of Minutes Spent Total Time Spent with Patient: Total time spent is greater than 50% in coordination of care (as documented) at patient's floor/unit and/or counseling patient: Coding Level of Care Code 37177 OFFICE CONSULT LVL 5/55M Diagnoses Numbness and tingling R20.0; R20.2 Cervical spine arthritis M47.812 Neck and shoulder pain M54.2; M25.519 Chronic left-sided low back pain with bilateral sciatica M54.41; M54.42; G89.29 Back pain location: low back pain Chronicity: chronic Back pain laterality: left Sciatica presence: with sciatica Sciatica laterality: bilateral sciatica (4) Back pain Back pain location: low back pain Chronicity: chronic Back pain laterality: left Sciatica presence: with sciatica Sciatica laterality: bilateral sciatica Qualified Code(s): M54.41 - Lumbago with sciatica, right side; M54.42 - Lumbago with sciatica, left side; G89.29 - Other chronic pain
[2025-03-08] MEDS: REMOVE LIDODERM PATCH SCH (11:27)
--- NOTE | 2025-03-08 11:54 | Electrocardiogram Report ---
Test Reason : Blood Pressure : */* mmHG Vent. Rate : 72 BPM Atrial Rate : 72 BPM P-R Int : 162 ms QRS Dur : 84 ms QT Int : 404 ms P-R-T Axes : 44 82 -40 degrees QTcB Int : 442 ms Normal sinus rhythm Nonspecific T wave abnormality Abnormal ECG When compared with ECG of 07-Apr-2014 09:00, Nonspecific T wave abnormality, worse in Inferior leads T wave inversion now evident in Lateral leads QT has shortened Confirmed by Jean Painter ([id number]) on 03/08/2025 11:54:09 AM Referred By: REFERRED SELF Confirmed By: Jean Painter
--- NOTE | 2025-03-08 12:01 | Electrocardiogram Report ---
Test Reason : Blood Pressure : */* mmHG Vent. Rate : 80 BPM Atrial Rate : 80 BPM P-R Int : 186 ms QRS Dur : 86 ms QT Int : 410 ms P-R-T Axes : 58 79 216 degrees QTcB Int : 472 ms Normal sinus rhythm Nonspecific T wave abnormality Prolonged QT Abnormal ECG When compared with ECG of 07-Mar-2025 18:07, (unconfirmed) No significant change was found Confirmed by Jean Painter ([id number]) on 03/08/2025 12:00:49 PM Referred By: REFERRED SELF Confirmed By: Jean Painter
--- NOTE | 2025-03-08 12:38 | Magnetic Resonance Report ---
MRI OF LUMBAR SPINE WITHOUT IV CONTRAST CLINICAL HISTORY: Chronic tingling and numbness throughout the body. Paresthesias. COMPARISON STUDY: Abdominal CT dated 04/06/2014. TECHNIQUE: MRI of the lumbar spine is performed utilizing various T1 and T2-weighted sequences Sagittal planes. IV contrast was not administered for this examination. FINDINGS: Lumbar spine: Vertebral body height and alignment are maintained throughout the lumbar spine. The tra nsverse and spinous processes appear intact. There is no evidence of spondylolysis. Tiny anterior and lateral marginal osteophytes are seen throughout. No destructive bony lesion is seen. Mild chronic d egenerative endplate sclerosis is noted at T12-L1. Intervertebral discs: There is disc desiccation throughout the lumbar spine. Mild loss of height is n oted at L3-L4 and L4-L5. Spinal cord: The imaged spinal cord is normal in morphology and signal intensity. The conus medullari s terminates at the level of L1. The nerve roots of the cauda equina are normal in morphology. L1-L2: Unremarkable. L2-L3: Mild facet arthropathy is of no consequence. The central canal and neural foramina are patent. L3-L4: There is minimal posterior disc bulge which abuts the transiting nerve roots. No significant c entral canal stenosis is seen. Facet arthropathy is of no consequence. The neural foramina are patent . L4-L5: There is broad-based posterior disc bulge which abuts the transiting nerve roots. This causes mild central canal stenosis at this level with a minimum AP canal diameter of 7.5 mm. Lateral disc bu lges contribute to bilateral subarticular stenosis and may abut the exiting bilateral L4 nerve roots. In conjunction with facet arthropathy there is mild to moderate bilateral neural foraminal stenosis. L5-S1: There is a small central posterior disc protrusion. The central canal is clear. Facet arthropa thy causes mild bilateral neural foraminal stenosis. Sacrum: The imaged sacrum is normal in morphology and signal intensity. Soft tissues: The paraspinous soft tissues are within normal limits. A 3 cm right upper pole renal cy st is noted on the radio maintainer sequence. The retroperitoneal structures are otherwise grossly unremarkable but incompletely evaluated. IMPRESSION: 1. Mild lumbosacral spondylosis as above with mild acquired compromise of the central canal at L4-L5. See discussion for detailed level by level analysis. 2. No destructive bony process is seen. Electronically signed by: Adryan Miles M.D. 03/08/2025 12:36 PM
--- NOTE | 2025-03-08 12:38 | Magnetic Resonance Report ---
MRI OF THE CERVICAL SPINE WITHOUT IV CONTRAST CLINICAL HISTORY: Chronic neck pain and numbness. Arm pain and paresthesias. COMPARISON STUDY: Cervical spine CT dated 03/07/2025. TECHNIQUE: MRI of the cervical spine is performed utilizing various T1 and T2-weighted sequences in t he axial and sagittal planes. IV contrast was not administered for this examination. FINDINGS: Cervical spine: Vertebral body height and alignment are maintained throughout the cervical spine. The re is straightening of the cervical lordosis. Anterior osteophytes are noted in the lower cervical re gion. The atlantodental articulation is maintained. The spinous processes are intact. A hemangioma is noted in the body of C5. No destructive bony process is seen. There is mild chronic degenerative end plate change at C5-C6 and C6-C7. No significant degenerative endplate edema is seen. Intervertebral discs: Disc desiccation is seen throughout the cervical spine. There is mild/moderate loss of height at C5-C6 and C6-C7. Minimal loss of height is seen at the remaining cervical levels. Spinal cord: There is mild thinning and myelomalacia of the cervical cord at C5-C6. This measures zelda roximately 8 mm in length as seen on sagittal image #8 and axial 2D MERGE images #9. The remainder of the cervical cord is normal in morphology and signal intensity. C2-C3: Unremarkable. C3-C4: The central canal is clear. Uncovertebral and facet arthropathy contribute to [id number]-we-[id number] left neural foraminal stenosis. The right neural foramen is patent. C4-C5: The central canal is clear. Uncovertebral and facet arthropathy contribute to moderate left ne ural foraminal stenosis. The right neural foramen is patent. C5-C6: A posterior disc osteophyte complex eccentric to the right effaces the ventral cord. This like ly impinges on the pre-foraminal right C6 nerve root. The minimum AP canal diameter at this level yolanda sures 6 mm. Lateral disc bulge is seen bilaterally. In conjunction with facet arthropathy there is mo derate to severe bilateral neural foraminal stenosis. C6-C7: A posterior disc osteophyte complex effaces the ventral cord. The minimum AP canal diameter at this level measures 6 mm. There is a right lateral disc bulge. In conjunction with facet arthropathy there is moderate to severe bilateral neural foraminal stenosis. C7-T1: Unremarkable. Soft tissues: The prevertebral and paraspinous soft tissues in the cervical region are within normal limits. There is an indeterminate ovoid cystic structure in the left paravertebral soft tissues at T3 -T4 seen on sagittal image #11. Brain parenchyma: The imaged brain parenchyma the skull base is normal as visualized. IMPRESSION: 1. There is thinning and myelomalacia of the cervical cord at C5-C6, likely secondary to spinal steno sis. 2. The remainder of the cervical cord is normal in morphology and signal intensity. 3. Multilevel cervical spondylosis as above, greatest at C5-C6 and C6-C7. See discussion for detailed level by level analysis. 4. No destructive bony process is seen. Electronically signed by: Adryan Miles M.D. 03/08/2025 12:37 PM
--- NOTE | 2025-03-08 12:42 | Hospitalist Progress Note ---
Date of Service March 08, 2025 Assessment & Plan (1) Numbness and tingling: Plan: Involving both upper extremities. This appears to be due to cervical stenosis and multiple cervical herniated disks. Appreciate orthopedic spine surgery consultation. ACDF surgery will be undertaken sometime within the next day or 2. (2) Radiculopathy: Plan: Cervical. Supportive care. Pain control measures (3) Elevated troponin: Plan: Nontrending. EKG #2 is unchanged. No evidence of acute coronary syndrome (4) Type 2 diabetes mellitus: Plan: Glucose 101 this morning, March 08. Hemoglobin A1c is only 6.2%. ADA diet. Sliding scale coverage. Continue current management (5) Hypothyroidism: Plan: Stable. Continue current medical management Plan Anticipate surgical intervention on the neck sometime within the next day or 2. Pain control measures in the meantime. Admission and Anticipated Discharge Date Admission Date: March 07, 2025 Subjective Alert and oriented. No distress. C-spine MRI is abnormal with several herniated disks that need surgical repair. Case discussed with Dr. Ferrari. EKG #2 is unchanged and troponin is not trending. No evidence of acute coronary syndrome. She is medically cleared for surgical intervention Review of Systems 2 Review of Systems: Constitutionalno fever or chills ENTno blurred vision, no double vision, no epistaxis, no sore throat Respiratoryno cough, no wheezing, no shortness of breath Cardiacno palpitations, no chest pain, no syncope Gdofrey nausea, vomiting, diarrhea, melena, hematochezia GUno urinary retention, no urinary incontinence, no dysuria, no hematuria Musculoskeletalneck discomfort, bilateral upper extremity paresthesia, lumbar discomfort. Left leg discomfort. No muscle tenderness Skinno bruising, no rashes, no pruritus Neurono isolated weakness, no paresthesia, no weakness Psychno depression, no anxiety Physical Exam 2 Physical Exam: General-alert and oriented x3, no fever, no chills HEENT-head atraumatic and normocephalic, pupils equal and reactive to light, extraocular muscles intact Neck-no lymphadenopathy or thyromegaly, trachea midline Chest-clear to auscultation. No rales, wheezing or rhonchi Cardiac-regular rate and rhythm, normal S1 and S2 Abdomen-normal bowel sounds, no hepatosplenomegaly Extremities-no cyanosis, clubbing, or edema Neuro-cranial nerves II through XII intact, motor and sensory function within normal limits, strength symmetrical, no focal deficits Psych-normal affect, normal mood Results & Data Results & Data Vital Signs (Past 12 Hours) Vital Signs Temp Pulse Pulse Resp BP Pulse Ox O2 Del Method 03/08/25 11:43 36.8 C 89 16 125/77 95 Room Air 03/08/25 08:05 36.4 C L 65 16 108/62 97 Room Air 03/08/25 07:29 60 03/08/25 03:35 36.7 C 80 20 124/74 96 Room Air Laboratory Results 03/08/25 06:42 03/07/25 18:12 PG Care Time/CCT Total # of Minutes Spent Total Time Spent with Patient: Total time spent is greater than 50% in coordination of care (as documented) at patient's floor/unit and/or counseling patient: Coding Level of Care Code 30783 SUB INP/OBS CARE 2/35MIN Diagnoses Numbness and tingling R20.0; R20.2 Radiculopathy M54.10 Elevated troponin R79.89 Type 2 diabetes mellitus E11.9 Hypothyroidism E03.9
--- NOTE | 2025-03-08 12:47 | Orthopedic Progress Note ---
Date of Service March 08, 2025 Assessment & Plan (1) Herniated nucleus pulposus, C5-6: (2) Herniated nucleus pulposus, C6-7: (3) Cervical myelopathy: (4) Cervical cord myelomalacia: (5) Cervical stenosis of spinal canal: Plan Assessment: 39-year-old female with cervical spinal stenosis and cervical myelopathy Plan: At this point the patient is stable as far as her neurologic symptoms. She does have continued right upper extremity numbness and tingling however the remainder of her neurologic exam is at her baseline. Given the chronicity of the urinary symptoms no urgent need for decompression. I do however feel it is beneficial for her to proceed with anterior cervical discectomy and fusion at C5-6 and C6-7. We discussed the procedure in detail today, risks and benefits of the surgery were discussed. I also explained that given the nature of spinal cord compression there is no guarantee of recovery however the goal would be to prevent worsening symptoms. She does have some migration of the disc posterior to the vertebral bodies however I do believe that I should be able to remove an adequate amount to provide spinal cord decompression via anterior cervical discectomy and fusion versus partial corpectomy. Explained the plan would be to proceed with anterior cervical discectomy and fusion at these 2 levels. If she does not get the relief she is desiring we could always go posterior to perform decompressive laminectomies to provide a 360 degree decompression especially if there is residual disc in the front, would like to avoid a corpectomy given her age and a two-level corpectomy would require posterior instrumentation. 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 Given this I would like to see if I can enlist one of our colleagues from ENT surgery to help with the exposure given the known nerve injury and likely scar tissue in the region. If I am unable to secure assistance from ENT surgery, we may need to transfer the patient to a tertiary care center given the risk of known nerve injury without a cervical access surgeon available. I think it is reasonable to plan for possible cervical discectomy and fusion early in the week, hopefully on Monday if we can secure ENT assistance. If un able to arrange this, we may discussed transfer or possible follow-up outpatient. If there is any neurologic decline over the weekend would certainly look to transfer however I think this is unlikely as she has been relatively stable for the past 24 hours. Would recommend starting Decadron to see if this can help with some of the numbness in her arms but ultimately she would most benefit from surgical decompression. Subjective Patient was again examined after MRI of the cervical thoracic and lumbar spine. She does have 2 levels of disc herniation at C5-6 and C6-7 in the cervical spine which causes significant central canal stenosis as well as foraminal stenosis. Her symptoms are consistent with cervical myelopathy, myelopathy symptoms have been relatively stable but this would certainly be a good explanation for her decreased urinary sensation over the last year or so, balance issues and decreased fine motor skills with numbness in her hands. Concerned that but she had been considering was carpal tunnel syndrome was actually myelopathy. She does have some lesser degenerative changes of the lumbar spine which could contribute to some of the leg symptoms. Overall she is neurologically intact with good strength in all extremities, able to ambulate without difficulty. Review of Systems All systems reviewed & are unremarkable except as noted in HPI & below. Physical Exam . Results & Data Results & Data Laboratory Results . Diagnostic Findings Imaging: MRI of the cervical spine available for review today and interpreted personally. Large posterior disc herniation at C5-6 and C6-7 with cord compression and myelomalacia. Significant foraminal stenosis is also noted at both levels. MRI of the thoracic spine is unremarkable, no significant cord compression or stenosis MRI of the lumbar spine does show mild grade 1 anterior listhesis at L4-5 which creates moderate degree of foraminal stenosis and possible compression of the exiting L4 nerve. PG Care Time/CCT Total # of Minutes Spent Total Time Spent with Patient: Total time spent is greater than 50% in coordination of care (as documented) at patient's floor/unit and/or counseling patient: Coding [place] [address] SUB INP/OBS CARE 3/50MIN (57 - DECISION FOR SURGERY) Patient Type Established Diagnoses Herniated nucleus pulposus, C5-6 M50.222 Herniated nucleus pulposus, C6-7 M50.223 Cervical myelopathy G95.9 Cervical cord myelomalacia G95.89 Cervical stenosis of spinal canal M48.02
--- NOTE | 2025-03-08 14:54 | Magnetic Resonance Report ---
Thoracic spine MRI without contrast History: Back pain. Numbness and tingling Comparison: None Technique: Sagittal T1-weighted, sagittal T2-weighted, sagittal STIR, sagittal diffusion weighted, and axial T2-weighted through the thoracic spine were obtained without intravenous contrast. Findings: The thoracic vertebral column appears in normal alignment. There is no loss of disc height . The spinal cord contour and signal pattern appear within normal limits. About the left anterior aspect of the T3 vertebral body, series 10 image 17, is an ovoid, 14 x 11 mm simple appearing cystic structure, likely congenital, or otherwise from prior infectious/inflammatory process, and of doubtful clinical significance. Degenerative disc osteophyte complex at T10-11, results in mild to moderate left-sided neuroforaminal stenosis. Anterior disc osteophyte complexes seen at T11-12, and T12-L1, without associated neuroforaminal or spinal canal stenosis. A simple appearing cyst is seen medially in the right kidney. Impression: Degenerative changes of the lower thoracic spine, as above. Electronically signed by Jac Parra 03-08-2025 2:54 PM
[2025-03-09] MEDS: ONDANSETRON INJ 2 MG/ML 2 ML VIAL IV PRN (00:03)
[2025-03-09] MEDS: MoRPHine SULFATE 2 MG/ML CARP IV PRN (00:03)
--- NOTE | 2025-03-09 11:03 | Orthopedic Progress Note ---
Date of Service March 09, 2025 Assessment & Plan (1) Cervical stenosis of spinal canal: (2) Cervical cord myelomalacia: (3) Cervical myelopathy: (4) Herniated nucleus pulposus, C6-7: (5) Herniated nucleus pulposus, C5-6: Plan Patient is neurologically stable overnight. I discussed treatment options moving forward, explained that her prior thyroid surgery with vocal cord injury does complicate the anterior approach to the neck. 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 Does not appear that there is coverage for otolaryngology at the hospital this weekend, Monday morning reach out to see if I can find someone to evaluate and assist with the surgery. Also unable to arrange OR time for any add-on cases until tomorrow morning given scheduling here for the OR. Plan will be to make the patient n.p.o. at midnight, I will be by to see her early in the morning tomorrow and see if I can contact otolaryngology for assistance. If we are unable to coordinate, the patient is neurologically stable over the last few days and reports this is actually a chronic issue and the only change was some worsening right sided arm numbness as well as elevated troponins which led to her admission. She does not have any decline in neurologic function during the time here, other options would be if we are unable to obtain assistance for the exposure and evaluation here, I discussed th e possibility of transferring her to a higher level of care where otolaryngology would be available to assist in the procedure or possibly trying to coordinate on it outpatient basis. Subjective Patient remains neurologically intact other than paresthesias into the upper extremity right worse than left. Reports that this has been chronic with va rying intensity, no acute changes since her exam yesterday. Able to ambulate normally, voiding at her baseline. Review of Systems All systems reviewed & are unremarkable except as noted in HPI & below. Physical Exam Constitutional: Well developed, appears stated age Psych: patient is coherent and answers questions appropriately, normal affect Eye: Normal gaze, no redness to sclera, pupils round and equal Pulm: Normal respiratory effort, no wheezing Cardiovascular: no significant peripheral edema, 2+ radial pulses Skin shows no rashes, lesions 5/5 muscle strength with testing of deltoids, wrist extensors, triceps, finger flexion, and hand intrinsics Sensation intact to light touch in the C5-T1 dermatomes on the left paresthesias through entire right upper extremity nondermatomal 2+ reflexes at biceps, triceps, and brachioradialis bilaterally Negative Anderson sign bilaterally Results & Data Results & Data Laboratory Results . Diagnostic Findings . PG Care Time/CCT Total # of Minutes Spent Total Time Spent with Patient: Total time spent is greater than 50% in coordination of care (as documented) at patient's floor/unit and/or counseling patient: Coding Level of Care Code 57288 SUB INP/OBS CARE 3/50MIN Diagnoses Cervical stenosis of spinal canal M48.02 Cervical cord myelomalacia G95.89 Cervical myelopathy G95.9 Herniated nucleus pulposus, C6-7 M50.223 Herniated nucleus pulposus, C5-6 M50.222
--- NOTE | 2025-03-09 12:09 | Hospitalist Progress Note ---
Date of Service March 09, 2025 Assessment & Plan (1) Numbness and tingling: (2) Radiculopathy: (3) Elevated troponin: (4) Type 2 diabetes mellitus: (5) Hypothyroidism: Plan 39-year-old female PMHx depression, hypothyroidism, and cervical spine arthritis presenting for numbness and tingling in her bilateral arms on 03/07/2025. . #Numbness and tingling/Cervical radiculopathy Presenting with numbness/tingling of BUE, ongoing for years but worsening the day of arrival; Known cervical arthritis per chart. On topiramate CBC w/ mild leukocytosis secondary to steroids given in ED. BMP stable. ESR WNL, CRP mildly elevated at 0.77. B12/Folate WNL. IWONA & Rheum factor pending. CXR WNL; Head CT WNL C spine CT: no fx, spinal stenosis of C5-C6 & C6-C7, b/l neuroforaminal narrowing at C6-C7 that may be affecting C7 nerve root. Pain regimen: Tramadol, Morphine both prn. Ortho spine following: hopeful for surgical repair on 03/10 pending if otolaryngology is also available. NPO after midnight in event surgery can happen. If no ENT available consider transfer to tertiary care vs outpatient follow up. #Elevated troponin Troponin initally elevated at 17.1 but has since downtrended to 14.8 Clinically no CP EKG w/o ischemic changes x 2 #T2DM H/o DMT2; At home regimen of Jardiance, metformin, insulin glargine 38U, insulin lispro. A1c 6.2% SSI + Lantus 15U BID #Asthma- CXR stable; No O2; Dupixent, Trelegy #HTN- Amlodipine #Dyslipidemia- Fenofibrate, fish oil, rosuvastatin #Psych- BuSpar, escitalopram, hydroxyzine prn #Hypothyroidism- Levothyroxine #GERD- Pantoprazole #MERLIN- CPAP HS DVT prophylaxis: SCD's, hold chemical in setting of possible surgery Code: full Admission and Anticipated Discharge Date Admission Date: March 07, 2025 Supervising Physician Co-Signing Physician Notes The patient was not seen by me. The chart was reviewed. Case discussed with MIRIAM Burnett. Agree with assessment and plan Alyson Saldaña was seen & examined this morning. She reports she is doing okay today. She reports cervical pain + numbness/tingling down b/l extremities. States she has not noticed much improvement since reporting to the ED a few days ago. Physical Exam Constitutional: WD/WN, vitals as above Eyes: PERRL, conjunctivae normal, anicteric sclerae Respiratory: normal respiratory effort Cardiovascular: RRR, no murmur, no edema Skin: no rashes, warm and dry Neurologic: PERRL, EOMI, accommodation nl, no face palsy, no dysarthria Psychiatric: A+Ox3, euthymic affect Results & Data Results & Data Vital Signs (Past 12 Hours) Vital Signs Temp Pulse Pulse Resp BP Pulse Ox O2 Del Method 03/09/25 11:23 36.7 C 80 18 110/65 98 Room Air 03/09/25 07:36 36.4 C L 67 18 102/67 97 CPAP 03/09/25 05:49 58 L 03/09/25 03:13 36.6 C 75 20 117/79 93 Room Air, CPAP 03/09/25 00:11 36.6 C 70 18 145/87 H 96 Room Air PG Care Time/CCT Total # of Minutes Spent Total Time Spent with Patient: Total time spent is greater than 50% in coordination of care (as documented) at patient's floor/unit and/or counseling patient: Coding Level of Care Code 79133 SUB INP/OBS CARE 2/35MIN Diagnoses Numbness and tingling R20.0; R20.2 Radiculopathy M54.10 Elevated troponin R79.89 Type 2 diabetes mellitus E11.9 Hypothyroidism E03.9
[2025-03-10] MEDS ORDERED: Nursing to Pharmacy Communication SCH ×2 (01:45→11:15)
[2025-03-10] MEDS: INSULIN ASPART PER UNIT CHARGE SC SCH ×2 (05:38→11:37)
[2025-03-10 11:05] VITALS: RESP 20
--- NOTE | 2025-03-10 11:25 | Discharge Summary ---
Discharge Summary Date of Service March 10, 2025 Principal Dx & Hospital Course #1 = Principal Diagnosis (1) Numbness and tingling: (2) Radiculopathy: (3) Elevated troponin: (4) Type 2 diabetes mellitus: (5) Hypothyroidism: Plan 39-year-old female PMHx depression, hypothyroidism, and cervical spine arthritis presenting for numbness and tingling in her bilateral arms on 03/07/2025. . CXR WNL; Head CT WNL. C spine CT: no fx, spinal stenosis of C5-C6 & C6-C7, b/l neuroforaminal narrowing at C6-C7 that may be affecting C7 nerve root. #Numbness and tingling/Cervical radiculopathy Presenting with numbness/tingling of BUE, ongoing for years but worsening the day of arrival; Known cervical arthritis per chart. On topiramate ESR WNL, CRP mildly elevated at 0.77. B12/Folate WNL. IWONA & Rheum factor pending. Ortho spine following: hopeful for surgical repair on 03/10 pending if otolaryngology is also available. No ENT coverage and with patient hx of thyroid surgery, unsafe to preform surgery at this location. Accepted for transfer by Dr. Siegel at [facility]. #Elevated troponin Troponin initally elevated at 17.1 but has since downtrended to 14.8. Clinically no CP . EKG w/o ischemic changes x 2 #T2DM H/o DMT2; At home regimen of Jardiance, metformin, insulin glargine 38U, insulin lispro. A1c 6.2% Was on SSI CF 20, CR 10 + Lantus 15U BID while inpatient #Asthma- CXR stable; No O2; Dupixent, Trelegy #HTN- Amlodipine #Dyslipidemia- Fenofibrate, fish oil, rosuvastatin #Psych- BuSpar, escitalopram, hydroxyzine prn #Hypothyroidism- Levothyroxine #GERD- Pantoprazole #MERLIN- CPAP HS Dispo: transfer to [facility] today Admission HPI Per Admitting Provider 39-year-old female PMHx HTN, T2DM, anxiety/depression, asthma, GERD, hypothyroidism, and cervical spine arthritis presenting for numbness and tingling in her bilateral arms. Patient has an extensive past medical history. In terms of her concerns on the day of arrival, she states that she was at [facility] earlier in the day and she started to have R arm numbness that was localized from the elbow to the hand, and she felt that her kiln remover had decreased. This was causing her some discomfort and pain. She has not had that in the past, likely because it had occurred on one side she was concerned. She additionally states that she might have had some chest pressure and difficulty breathing at some point, probably 2 hours prior to being seen but possible. She states when she got to her car her forehead was cold but she felt sweaty, also mentioning that it was a very hot point in the day that medicine because of the outside temperature. Denies palpitations, abdominal pain, N/V/D/C, weakness, lightheadedness, syncope, or falls. No recent trauma to her back, however she did attempt a different lifting technique a few days ago which she felt may have pulled her back slightly, but again no falls or trauma. Patient starts by mentioning she has a history of chronic pancreatitis which started in her early 20s. It was thought to be secondary to hypertriglyceridemia, and her most recent episode of pancreatitis was approximately 4 years ago. She does take 4 fish capsules nightly which has seemed to prevent this from as she is on medications. She denies abdominal pain, N/V/D/C. Since 26 years old, she has had bilateral leg pain and numbness. She states that this was thought to be secondary to Tricor which was discontinued at the time, however she continued to have symptoms. The symptoms go down her left leg and into her buttock/left side of the spine mostly. This has been ongoing for 3 to 4 months with associated N/T. She is taken Tylenol arthritis and attempt to alleviate this which has for the most part until approximately 2 weeks ago whenever the symptoms moved to her RLE. She states that whenever she touches her back she cannot always feel it. She has difficulties having bowel movements as it causes her back and posterior leg pain when straining to have a BM. She states that she cannot empty her bladder completely as she was told a few years ago during a Pap smear that her bladder was descending and she may never be able to feel herself empty completely. Patient does have a history of carpal tunnel since 2017 when she was with her son and her bilateral upper extremities. For the past 3 years she says her whole body has just always been numb. She occasionally will have worsening pain in her leg when her neck bothers her, and she admits to sleeping on her stomach often but she is not sure if sleep position, at times, irritates this. Patient also admits to having "fluid around my heart" when her body is under stress. Patient was diagnosed with diabetes in May 2024 and started on insulin. Also started on vitamin D and magnesium for low levels. Reports chronic yeast infections. States that when her numbness resolves at times, the sensation changes to it itching "on fire" sensation where she will scratch the areas are previously numb to the point that she sometimes causes scabbing or welts to occur. At present, she admits to occasional chest tightness, but no pain/palpitations. No SOB. Patient was reportedly seen by rheumatology 3 years back but felt as though she was "brushed off" because she was 30 minutes late to her appointment after her phone and she was unable to find the location of the building. States the only thing that was positive at that time was possible gluten intolerance, however after further testing this came back as negative. She has been dealing with an ongoing array of symptoms for many years, stating that she often will minimize her symptoms because she does not want to symptomatic. 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 ED evaluation reveals CBC without leukocytosis and with stable H&H; CMP sodium 134, BUN 30, ratio 327.3, glucose 101; troponin 17.1, pending repeat; TSH 2.342; CXR no active disease; head CT unremarkable; cervical spine CT no definite fracture, spinal stenosis of C5-6 and C6-7, bilateral neural foramen narrowing at C6-7 that may affect the existing C7 nerve roots; EKG NSR with nonspecific T wave abnormality at 72 bpm.; Provided with Zofran 4 mg IV, morphine 4 mg IV, dexamethasone 10 mg IV, and aspirin 324 mg p.o. in ED. Please see Dr. Mcconnell's attestation for adjustments/additions to treatment plan. Discharge Exam General: NAD, VS as above, ambulating in the room Resp: normal respiratory effort, lungs clear to auscultation CV: RRR, no murmur, Abd: normal bowel sounds, non tender, no hepatosplenomegaly Extremities:decreases senation to right arm Neuro: A&O x3, Skin: intact, no lesions noted Discharge Plan Discharge Items Patient Disposition: Transfer Acute Care Hospital Reason For Visit: NUMBNESS/TINGLING, ELEVATED TROP Discharge Diagnosis: cervical stenosis Condition on Discharge: Fair Activity: As commented below Activity Comment: per [facility] d/c instructions Weightbearing: Full weightbearing Non-emergency contact: Primary Care Provider and Surgeon Call non-emergency contact if: you have any medication questions, your symptoms worsen, your pain is not controlled and your temperature is above 101.5 Follow-up/Referrals: Jesus Rajan CRNP [Primary Care Provider] - Diet: Carb Consistent or DM2 Addtl Attending Provider Instructions: Ms. Kaplan, You were hospitalized after having worsening symptoms from your cervical stenosis. You were seen by Dr. Ferrari - who wanted to do surgery but was unable to because of ENT coverage. You are being transferred to [facility] to have surgery completed. Please refer to their discharge summary for updated recommendations, medications, etc. Pending Studies at Discharge: No Stand-Alone Forms: My [facility] Skilled Items Patient informed of condition?: Yes DNR: No Discharge Level of Care: Other Communicable Disease: No Discharge Prognosis: Stable Lines: Peripheral IV Urinary Catheter: No Medications and DC Order Prescriptions: Continued topiramate 25 mg tablet 25 mg PO BID fenofibrate micronized 134 mg capsule 134 mg PO DAILY pantoprazole 20 mg tablet,delayed release (DR/EC) 20 mg PO DAILY magnesium oxide 400 mg (241.3 mg magnesium) tablet 400 mg PO DAILY metformin 1,000 mg tablet 1,000 mg PO BID ergocalciferol (vitamin D2) [Vitamin D2] 1,250 mcg (50,000 unit) capsule 1,250 mcg PO WK hydroxyzine HCl 10 mg Tablet 10 mg PO TID PRN (Reason: Anxiety/Agitation) levothyroxine 112 mcg tablet 112 mcg PO QAM buspirone 15 mg tablet 15 mg PO TID insulin lispro 100 unit/mL insulin pen 5 unit SUBCUT TID Rx Instructions: Before meals escitalopram oxalate [Lexapro] 20 mg tablet 20 mg PO DAILY rosuvastatin 10 mg tablet 10 mg PO DAILY omega-3 acid ethyl esters 1 gram capsule 1 g PO QID Rx Instructions: Take 1g cap 4x/day insulin glargine [Lantus Solostar U-100 Insulin] 100 unit/mL (3 mL) insulin pen 38 unit SUBCUT HS Rx Instructions: Inject 38U under skin every HS Jardiance 10 mg tablet 10 mg DAILY Dupixent Syringe 300 mg/2 mL syringe 300 mg SUBCUT 2XWK Trelegy Ellipta 100-62.5-25 mcg blister with device 1 inh INHALATION DAILY Discharge Orders: Discharge Order (Routine); Ordered 03/10/25 Ordered By: Britney Ortiz/Other Patient Handouts: Managing Type 2 Diabetes Admission Data Admit Date/Time: 03/07/25 21:35 Attending Provider: Portia Cole Admit Provider: Carmen Mcconnell Primary Care Provider: Jesus Rajan Other Providers: Carmen Mcconnell; Adryan Ferrari Hospital Stay Data Consultations 03/07/25 19:56 ED Decision to Admit Stat 03/08/25 07:32 Consult Orthopedic Spine Surgery Routine Procedures Performed Operation Date: 03/10/25 09:40 <No data on this case meets the specified criteria> Diagnostic Imagining Performed Cervical Spine CT 03/07/25 18:01 Clinical history: Numbness Technique: Axial computed tomography images were obtained of the cervical spine without intravenous contrast. Sagittal and coronal reconstructions were obtained Findings: No fracture is identified. No listhesis is seen. No focal osseous lesion is evident. The atlantoaxial articulation appears unremarkable. At C2-3, no disc herniation is identified. There is no spinal stenosis. The neural foramen are patent At C3-4, there is a mild disc bulge. There is no spinal stenosis. The neural foramen are patent At C4-5, there is a mild disc bulge. There is no spinal stenosis. The neural foramen are patent At C5-6, there is spinal stenosis due to a disc bulge and a right paracentral disc protrusion. The neural foramen are patent At C6-7, there is spinal stenosis due to a disc bulge and a central disc protrusion. There is bilateral neural foramen narrowing that may affect the exiting C7 nerve roots At C7-T1, there is a mild disc bulge without spinal stenosis. There is mild left neural foramen narrowing The lung apices appear clear. The visualized soft tissues of the neck appear unremarkable. No foreign body is seen Impression: 1. No definite cervical spine fracture 2. Spinal stenosis at C5-6 and C6-7 3. Bilateral neural foramen narrowing at C6-7 that may affect the exiting C7 nerve roots ACT 112: Positive. There are findings on this exam that require communication between the performing entity and the patient following Patient Test Result Information Act ([place] ACT 112) guidelines. Electronically signed by Landry Wayne 03-07-2025 6:53 PM Chest X-Ray 03/07/25 18:01 Clinical History: Weakness Technique: A frontal view of the chest was obtained Findings: There are no confluent pulmonary infiltrates. The heart size is within normal limits. No pleural effusion or pneumothorax is seen. There is no definite pulmonary nodule. No fracture is noted. No foreign body is seen Impression: No active disease Electronically signed by Landry Wayne 03-07-2025 7:[address] 03/07/25 18:01 Clinical History: Numbness Technique: Axial computed tomography images were obtained of the brain from the vertex to the skull base without intravenous contrast. Findings: There is no sign of intracranial hemorrhage. There is normal ovalle-white matter differentiation with no sign of acute or old infarction. No midline shift or other form of herniation is identified. There is no hydrocephalus. No obvious mass lesion is seen on this noncontrast examination. The visualized portions of the orbits and paranasal sinuses appear unremarkable. The mastoid air cells appear clear Impression: Unremarkable noncontrast CT of the brain Electronically signed by Landry Wayne 03-07-2025 6:50 PM Cervical Spine MRI 03/08/25 09:01 MRI OF THE CERVICAL SPINE WITHOUT IV CONTRAST CLINICAL HISTORY: Chronic neck pain and numbness. Arm pain and paresthesias. COMPARISON STUDY: Cervical spine CT dated 03/07/2025. TECHNIQUE: MRI of the cervical spine is performed utilizing various T1 and T2- weighted sequences in the axial and sagittal planes. IV contrast was not administered for this examination. FINDINGS: Cervical spine: Vertebral body height and alignment are maintained throughout the cervical spine. There is straightening of the cervical lordosis. Anterior osteophytes are noted in the lower cervical region. The atlantodental articulation is maintained. The spinous processes are intact. A hemangioma is noted in the body of C5. No destructive bony process is seen. There is mild chronic degenerative endplate change at C5-C6 and C6-C7. No significant degenerative endplate edema is seen. Intervertebral discs: Disc desiccation is seen throughout the cervical spine. There is mild/moderate loss of height at C5-C6 and C6-C7. Minimal loss of height is seen at the remaining cervical levels. Spinal cord: There is mild thinning and myelomalacia of the cervical cord at C5- C6. This measures approximately 8 mm in length as seen on sagittal image #8 and axial 2D MERGE images #9. The remainder of the cervical cord is normal in morphology and signal intensity. C2-C3: Unremarkable. C3-C4: The central canal is clear. Uncovertebral and facet arthropathy contribute to [id number] left neural foraminal stenosis. The right neural foramen is patent. C4-C5: The central canal is clear. Uncovertebral and facet arthropathy contribute to moderate left neural foraminal stenosis. The right neural foramen is patent. C5-C6: A posterior disc osteophyte complex eccentric to the right effaces the ventral cord. This likely impinges on the pre-foraminal right C6 nerve root. The minimum AP canal diameter at this level measures 6 mm. Lateral disc bulge is seen bilaterally. In conjunction with facet arthropathy there is moderate to severe bilateral neural foraminal stenosis. C6-C7: A posterior disc osteophyte complex effaces the ventral cord. The minimum AP canal diameter at this level measures 6 mm. There is a right lateral disc bulge. In conjunction with facet arthropathy there is moderate to severe bilateral neural foraminal stenosis. C7-T1: Unremarkable. Soft tissues: The prevertebral and paraspinous soft tissues in the cervical region are within normal limits. There is an indeterminate ovoid cystic structure in the left paravertebral soft tissues at T3-T4 seen on sagittal image #11. Brain parenchyma: The imaged brain parenchyma the skull base is normal as visualized. IMPRESSION: 1. There is thinning and myelomalacia of the cervical cord at C5-C6, likely s econdary to spinal stenosis. 2. The remainder of the cervical cord is normal in morphology and signal intensity. 3. Multilevel cervical spondylosis as above, greatest at C5-C6 and C6-C7. See discussion for detailed level by level analysis. 4. No destructive bony process is seen. Electronically signed by: Adryan Miles M.D. 03/08/2025 12:37 PM Lumbar Spine MRI 03/08/25 09:30 MRI OF LUMBAR SPINE WITHOUT IV CONTRAST CLINICAL HISTORY: Chronic tingling and numbness throughout the body. Paresthesias. COMPARISON STUDY: Abdominal CT dated 04/06/2014. TECHNIQUE: MRI of the lumbar spine is performed utilizing various T1 and T2- weighted sequences Sagittal planes. IV contrast was not administered for this examination. FINDINGS: Lumbar spine: Vertebral body height and alignment are maintained throughout the lumbar spine. The transverse and spinous processes appear intact. There is no evidence of spondylolysis. Tiny anterior and lateral marginal osteophytes are seen throughout. No destructive bony lesion is seen. Mild chronic degenerative endplate sclerosis is noted at T12-L1. Intervertebral discs: There is disc desiccation throughout the lumbar spine. Mild loss of height is noted at L3-L4 and L4-L5. Spinal cord: The imaged spinal cord is normal in morphology and signal intensity. The conus medullaris terminates at the level of L1. The nerve roots of the cauda equina are normal in morphology. L1-L2: Unremarkable. L2-L3: Mild facet arthropathy is of no consequence. The central canal and neural foramina are patent. L3-L4: There is minimal posterior disc bulge which abuts the transiting nerve roots. No significant central canal stenosis is seen. Facet arthropathy is of no consequence. The neural foramina are patent. L4-L5: There is broad-based posterior disc bulge which abuts the transiting nerve roots. This causes mild central canal stenosis at this level with a minimum AP canal diameter of 7.5 mm. Lateral disc bulges contribute to bilateral subarticular stenosis and may abut the exiting bilateral L4 nerve roots. In conjunction with facet arthropathy there is mild to moderate bilateral neural foraminal stenosis. L5-S1: There is a small central posterior disc protrusion. The central canal is clear. Facet arthropathy causes mild bilateral neural foraminal stenosis. Sacrum: The imaged sacrum is normal in morphology and signal intensity. Soft tissues: The paraspinous soft tissues are within normal limits. A 3 cm right upper pole renal cyst is noted on the heliotherapist sequence. The retroperitoneal structures are otherwise grossly unremarkable but incompletely evaluated. IMPRESSION: 1. Mild lumbosacral spondylosis as above with mild acquired compromise of the central canal at L4-L5. See discussion for detailed level by level analysis. 2. No destructive bony process is seen. Electronically signed by: Adryan Miles M.D. 03/08/2025 12:36 PM Thoracic Spine MRI 03/08/25 09:30 Thoracic spine MRI without contrast History: Back pain. Numbness and tingling Comparison: None Technique: Sagittal T1-weighted, sagittal T2-weighted, sagittal STIR, sagittal diffusion weighted, and axial T2-weighted through the thoracic spine were obtained without intravenous contrast. Findings: The thoracic vertebral column appears in normal alignment. There is no loss of disc height . The spinal cord contour and signal pattern appear within normal limits. About the left anterior aspect of the T3 vertebral body, series 10 image 17, is an ovoid, 14 x 11 mm simple appearing cystic structure, likely congenital, or otherwise from prior infectious/inflammatory process, and of doubtful clinical significance. Degenerative disc osteophyte complex at T10-11, results in mild to moderate left-sided neuroforaminal stenosis. Anterior disc osteophyte complexes seen at T11-12, and T12-L1, without associated neuroforaminal or spinal canal stenosis. A simple appearing cyst is seen medially in the right kidney. Impression: Degenerative changes of the lower thoracic spine, as above. Electronically signed by Jac Parra 03-08-2025 2:54 PM Pending Results Patient Have Any Pending Studies at Discharge: No Discharge Instructions Given to Patient (Per Discharging Provider) Ms. Kaplan, You were hospitalized after having worsening symptoms from your cervical stenosis. You were seen by Dr. Ferrari - who wanted to do surgery but was unable to because of ENT coverage. You are being transferred to [facility] to have surgery completed. Please refer to their discharge summary for updated recommendations, medications, etc. Total Time Total Time Spent Total Time Spent (In Minutes): Time spent day of discharge 40 minutes including direct patient care, medication reconciliation, documentation, review of labs and images, and coordination of care. case discussed with ortho spine Coding Level of Care Code 16797 INP/OBS DISCH >30 MIN Diagnoses Numbness and tingling R20.0; R20.2 Radiculopathy M54.10 Elevated troponin R79.89 Type 2 diabetes mellitus E11.9 Hypothyroidism E03.9
[2025-03-10] MEDS: ACETAMINOPHEN 500 MG TAB PO PRN (13:06)
--- NOTE | 2025-03-10 13:25 | Orthopedic Progress Note ---
Date of Service March 10, 2025 Assessment & Plan (1) Cervical stenosis of spinal canal: (2) Cervical cord myelomalacia: (3) Cervical myelopathy: (4) Herniated nucleus pulposus, C6-7: (5) Herniated nucleus pulposus, C5-6: Plan I discussed with the patient today concern of proceeding without evaluation of the vocal cords. I informed her that I spoke to one of the spine surgeons at [facility] who has agreed to accept her for transfer, given the complex history with a vocal cord injury in the neck think it is reasonable to transfer her to [facility] where the surgery can be performed safely with assistance from ENT. Placed patient in cervical collar for transport, Dr. Siegel has agreed to accept the patient to his service. Subjective Patient is a 39-year-old female with relatively stable cervical myelopathy due to cervical disc herniations. She does report a prior vocal cord injury, unable to evaluate her vocal cords here at [facility]. She has remained neurologically stable, discussed case with Dr. Siegel from [facility]. He is agreed that it is reasonable to proceed with decompression however given her history of vocal cord injury I think this would be best done a t a tertiary care center with ENT in house. Review of Systems All systems reviewed & are unremarkable except as noted in HPI & below. Physical Exam Neuroexam stable, no progressive weakness, continues with right upper extremity paresthesias. Results & Data Results & Data Laboratory Results . Diagnostic Findings . PG Care Time/CCT Total # of Minutes Spent Total Time Spent with Patient: Total time spent is greater than 50% in coordination of care (as documented) at patient's floor/unit and/or counseling patient: Coding Level of Care Code 89520 SUB INP/OBS CARE 3/50MIN Diagnoses Cervical stenosis of spinal canal M48.02 Cervical cord myelomalacia G95.89 Cervical myelopathy G95.9 Herniated nucleus pulposus, C6-7 M50.223 Herniated nucleus pulposus, C5-6 M50.222
[2025-03-10 15:08] VITALS: PULSE 77; TEMP 98.1; O2SAT 97
[2025-03-10 20:32] LABS: Anti Nuclear Antibody Screen POSITIVE (NEGATIVE)
[2025-03-10 21:24] VITALS: BP 104/63
[2025-03-11 12:40] LABS: ANA Pattern Nuclear, Speckled; ANA Titer 1:40 titer
== END 2025-03-10 21:26 | disposition short-term general hospital (02) | DRG 552 ==
LOC: ED 17:34 → SUATTDRO 21:35 → 2N 21:35
DX: E78.5 Hyperlipidemia, unspecified; Z79.890 Hormone replacement therapy; Z79.4 Long term (current) use of insulin; F41.9 Anxiety disorder, unspecified; M50.10 Cervical disc disorder with radiculopathy, unspecified cervical region; M50.023 Cervical disc disorder at C6-C7 level with myelopathy; E03.9 Hypothyroidism, unspecified; Z79.899 Other long term (current) drug therapy; G95.89 Other specified diseases of spinal cord; J45.909 Unspecified asthma, uncomplicated; Z88.8 Allergy status to other drugs, medicaments and biological substances; Z88.1 Allergy status to other antibiotic agents; Z79.51 Long term (current) use of inhaled steroids; R79.89 Other specified abnormal findings of blood chemistry; G47.33 Obstructive sleep apnea (adult) (pediatric); I10 Essential (primary) hypertension; Z79.84 Long term (current) use of oral hypoglycemic drugs; M48.02 Spinal stenosis, cervical region; E11.9 Type 2 diabetes mellitus without complications; M47.12 Other spondylosis with myelopathy, cervical region; K21.9 Gastro-esophageal reflux disease without esophagitis; F32.A Depression, unspecified; M47.22 Other spondylosis with radiculopathy, cervical region; Z88.6 Allergy status to analgesic agent; M50.022 Cervical disc disorder at C5-C6 level with myelopathy; Z87.891 Personal history of nicotine dependence